=== PATIENT | female | born 1990 | race Caucasian/White ===

== ENCOUNTER 2018-07-14 09:49 | Day surgery (SDC) | payer OTHER ==
[2018-07-14] MEDS: SOD CHLORIDE 0.9% 1,000 ML IV (11:07)
[2018-07-14 11:34] LABS: ADD MAN DIFF? NO
[2018-07-14 11:37] LABS: BASOPHILS % 0.3 % (0.0-2.0); EOSINOPHILS % 0.4 % (0.0-7.0); HEMATOCRIT 43.5 % (37.0-47.0); HEMOGLOBIN 14.7 g/dl (12.0-16.0); LYMPHOCYTES # 2.2 10^3/ul (0.8-2.9); LYMPHOCYTES % 23.1 % (15.0-51.0); MEAN CORPUSCULAR HEMOGLOBIN 30.9 pg (29.0-33.0); MEAN CORPUSCULAR HGB CONC 33.8 g/dl (32.0-37.0); MEAN CORPUSCULAR VOLUME 91.4 fl (82.0-101.0); MEAN PLATELET VOLUME 10.3 fl (7.4-10.4); MONOCYTE # 0.6 10^3/ul (0.3-0.9); NEUTROPHIL # 6.7 10^3/ul (1.6-7.5); NEUTROPHILS % 69.8 % (39.0-77.0); PLATELET COUNT 361 10^3/UL (140-415); RED BLOOD COUNT 4.76 10^6/ul (4.20-5.40); RED CELL DISTRIBUTION WIDTH 12.7 % (11.5-14.5)
[2018-07-14 11:37] LABS: WHITE BLOOD COUNT 9.7 10^3/ul (4.8-10.8)
[2018-07-14 11:51] LABS: ANION GAP 8 (5-13); BLOOD UREA NITROGEN 8 mg/dl (7-20); CALCIUM 9.5 mg/dl (8.4-10.2); CARBON DIOXIDE 27 mmol/L (21-31); CHLORIDE 107 mmol/L (97-110); CREATININE 0.62 mg/dl (0.44-1.00); Estimated GFR > 60 mL/min (>60); GLUCOSE 86 mg/dl (70-220); POTASSIUM 4.2 mmol/L (3.5-5.1); SODIUM 142 mmol/L (135-144)
[2018-07-14 11:56] LABS: INR 0.93; PARTIAL THROMBOPLASTIN TIME 31.3 Sec (23.0-35.0); PROTIME 12.6 Sec (11.9-14.9)
[2018-07-14] MEDS ORDERED: BUPIVACAINE 0.25% (MPF) 30 ML INJ (12:09)
[2018-07-14] MEDS ORDERED: SUCCINYLCHOLINE CHLORIDE 100 MG/5 ML SYG IV (12:16)
[2018-07-14] MEDS ORDERED: PROPOFOL 20 ML (12:16)
[2018-07-14] MEDS ORDERED: LIDOCAINE 2% (SDV) 5 ML INJ (12:16)
[2018-07-14] MEDS ORDERED: ROCURONIUM 50 MG INJ (12:16)
[2018-07-14] MEDS ORDERED: MIDAZOLAM 1 MG/ML 2 ML INJ (12:17)
[2018-07-14] MEDS ORDERED: ROPIVACAINE 0.5 % 30 ML VIAL (12:24)
[2018-07-14] MEDS ORDERED: DIPHENHYDRAMINE 50 MG INJ IV (12:30)
[2018-07-14] MEDS ORDERED: FENTAnyl 50 MCG/ML VIAL IV (12:30)
[2018-07-14] MEDS ORDERED: OXYCODONE/ACETAMINOPHEN (5/325) TAB PO (12:30)
[2018-07-14] MEDS ORDERED: HYDROmorphONE 1 MG/5 ML IV SYRINGE IV (12:30)
[2018-07-14] MEDS ORDERED: PROCHLORPERAZINE 10 MG INJ IV (12:30)
[2018-07-14] MEDS ORDERED: FAMOTIDINE 20 MG INJ (12:35)
[2018-07-14] MEDS ORDERED: ONDANSETRON 4 MG INJ (12:35)
[2018-07-14] MEDS ORDERED: CEFAZOLIN 1 GM INJ (12:35)
[2018-07-14] MEDS ORDERED: DEXAMETHASONE 4 MG/ML 5 ML INJ (12:35)
[2018-07-14] MEDS: CEFAZOLIN 2 GM/50 ML (PMX) 50 ML IVPB (12:38)
[2018-07-14] MEDS ORDERED: FENTAnyl 50 MCG/ML VIAL (12:43)
[2018-07-14] MEDS ORDERED: EPHEDrine 25 MG/5 ML SYG (13:02)
[2018-07-14] MEDS: MEPERIDINE 25 MG INJ IV (13:19)
[2018-07-14] MEDS: ONDANSETRON 4 MG INJ IV ×2 (13:19→16:52)
[2018-07-14] MEDS: FENTAnyl 50 MCG/ML VIAL IV ×3 (13:31→13:50)
[2018-07-14] MEDS: HYDROmorphONE 1 MG/5 ML IV SYRINGE IV ×2 (14:00→14:09)
[2018-07-14] MEDS: HYDROCODONE/APAP (5/325) TAB PO (15:26)
== END 2018-07-14 16:55 | disposition home or self-care (01) ==
LOC: SDS 09:49
DX: K80.10 Calculus of gallbladder with chronic cholecystitis without obstruction (principal)
CPT/HCPCS: 47562; 80048; 85025; 85610; 85730; 88304